=== PATIENT | male | born 1990 | race Caucasian/White ===

== ENCOUNTER 2019-09-25 16:22 | Outpatient (CLI) | payer OTHER, SELFPAY ==
[2019-09-25 16:51] LABS: Anion Gap 7 mmol/L (8-16); Blood Urea Nitrogen 13 mg/dL (9-20); Calcium 9.3 mg/dL (8.4-10.2); Carbon Dioxide 29 mmol/L (22-30); Chloride 103 mmol/L (98-107); Estimated Glomerular Filt Rate > 60; Glucose 85 mg/dL (75-110); Potassium 4.2 mmol/L (3.4-5.0); Sodium 139 mmol/L (137-145)
== END 2019-09-25 16:23 | disposition home or self-care (01) ==
PROVIDERS: PCP Internal Medicine
DX: M85.611 Other cyst of bone, right shoulder (principal)
CPT/HCPCS: 36415; 80048

== ENCOUNTER 2021-01-24 10:02 | Outpatient (CLI) | payer OTHER, SELFPAY ==
--- NOTE | ~2021-01-24 | MR_ITS ---
EXAMINATION: MR cervical spine wo con DATE: 01/24/2021 10:47 INDICATION: Cervical disc disorder with radiculopathy. TECHNIQUE: Magnetic resonance imaging (MRI) of the cervical spine was performed without intravenous c ontrast. Sequences included sagittal T2-weighted FSE, sagittal T2-weighted FS FSE, sagittal T1-weight ed FSE, axial MERGE, and axial T2-weighted FSE. COMPARISON: None FINDINGS: Bone alignment is normal. Vertebral body heights and intervertebral disc heights are normal . The spinal cord signal intensity is normal. The following disc levels are specifically discussed: C2-C3: The disc does not extend beyond the endplate margin. There is no uncovertebral joint osteoarth ritis. There is mild bilateral facet joint osteoarthritis. There is no neural foraminal stenosis. The re is no central canal stenosis. C3-C4: The disc does not extend beyond the endplate margin. There is no uncovertebral joint osteoarth ritis. There is mild bilateral facet joint osteoarthritis. There is no neural foraminal stenosis. The re is no central canal stenosis. C4-C5: The disc does not extend beyond the endplate margin. There is mild left uncovertebral joint os teoarthritis. There is no facet joint osteoarthritis. There is no neural foraminal stenosis. There is no central canal stenosis. C5-C6: The disc does not extend beyond the endplate margin. There is no uncovertebral joint osteoarth ritis. There is no facet joint osteoarthritis. There is no neural foraminal stenosis. There is no annika tral canal stenosis. C6-C7: The disc does not extend beyond the endplate margin. There is no uncovertebral joint osteoarth ritis. There is mild bilateral facet joint osteoarthritis. There is no neural foraminal stenosis. The re is no central canal stenosis. C7-T1: The disc does not extend beyond the endplate margin. There is no uncovertebral joint osteoarth ritis. There is no facet joint osteoarthritis. There is no neural foraminal stenosis. There is no annika tral canal stenosis. IMPRESSION: 1. Mild polyarticular osteoarthritis. Reviewed, dictated and finalized at location A. WALL APPLICATOR
== END 2021-01-24 10:03 | disposition home or self-care (01) ==
LOC: ANHIMG 10:06
PROVIDERS: PCP Internal Medicine; Visit Provider Orthopaedic Surgery Hand Surgery
DX: M50.10 Cervical disc disorder with radiculopathy, unspecified cervical region (principal); M47.892 Other spondylosis, cervical region
CPT/HCPCS: 72141

== ENCOUNTER 2023-08-30 09:22 | Outpatient (CLI) | payer OTHER, SELFPAY ==
--- NOTE | ~2023-08-30 | XR_ITS ---
XR cervical spine min 6V Ordering provider: Devon Coulter, [place] History: . Neck pain . Comparison: None. FINDINGS: VERTEBRAL BODIES: Normal height and alignment. No visible fracture or subluxation. The dens is intact . DISK SPACES: Well maintained. PARASPINOUS SOFT TISSUES: No prevertebral soft tissue swelling. IMPRESSION: No acute osseous abnormality cervical spine. Reviewed, dictated and finalized at location A.
== END 2023-08-30 09:23 ==
LOC: GOSHIMG 09:26
PROVIDERS: PCP Internal Medicine; Visit Provider Chiropractor
DX: M54.2 Cervicalgia (principal)
CPT/HCPCS: 72052

== ENCOUNTER 2024-10-11 11:24 | Outpatient (CLI) | payer OTHER, SELFPAY ==
--- OUTSIDE RECORDS SUMMARY | 2021-03-02 09:50 | XMS_ITS | Continuity of Care Document ---
Author Organization [facility] Address [address] [place] [address] Phone Care Team Providers Care Podiatric Surgeon Name Role Phone Wero HOSKINS MD, Eddy Unavailable María Elena vailable Allergies, Adverse Reactions, Alerts Substance Reaction Status Criticality No Known Allergies Active No Inform ation Medications Medication Instructions Dosage Effective Dates (start - stop) Status Comments clomiphene citrate 50 mg tablet - Active tramadol 50 mg tablet take 1 tablet by oral route every 6 hours as needed 50 MG - No Longer Active Procedures Procedure Date X-ray exam Cervical 3 Views Or Less Office/outpatient visit,[facility] [place] [facility] [place] Global/Postop followup visit Global/Postop followup visit Arc 2 0 Sling Office/outpatient visit,[facility], [place] [facility] [place] 2019 Advance Directives Directive Yes / No Effective Date File Name No Information Encounters Encounter Description Practice Location Reason(s) For Visit Diagnoses Date Provider Providers Copied on Encounter Office/outpa tient visit,est, mod [facility], [address], [id number], [place] tel:[phone] [facility] excruciating Neck And Back Pain (chief complaint)cer vical spine (chief complaint) Cervicalgia 2 Wero Kam er. [address], [address], [place], [place], [id number] , [place]. tel: [phone] [facility], [address], [id number], [place] [phone] [facility] shoulder (chief complaint) Superior glenoid labrum lesion of right shoulder, initOther cyst of bone, right shoulderOther instability, right shoulderEncoun ter for other orthopedic aftercare [phone] [facility] Alexa . [address] [place] [address], [place], [place], [id number] , [place]. tel: [phone] [facility], [address], [id number], [place] [phone] [facility] shoulder (chief complaint) Superior glenoid labrum lesion of right shoulder, initOther instability, right shoulderOther cyst of bone, right shoulderEncoun ter for other orthopedic aftercare 0 [facility] Alexa . [address], [id number] , [place]. tel: [phone] [facility], [address], [id number], [place] [phone] [facility] No Information 0 Verenice Contreras. [address], [id number] , [place]. tel: [phone] [facility], [address], [id number], [place] [phone] [facility] Superior glenoid labrum lesion of right shoulder, init 0 Verenice Contreras. [address] [facility], [address], [id number] , [place]. tel: [phone] [facility], [address], [id number], [place] [phone] [facility] Superior glenoid labrum lesion of right shoulder, init 0 Verenice Contreras. [address] [facility], [address], [place], [place], [id number] , [place]. tel: [phone] Office/outpa tient visit,[facility] [place] [facility] [place] [facility], [address], [place], [place], [id number], tel:[phone] [facility] right shoulder pain (chief complaint) Superior glenoid labrum lesion of right shoulder, initOther instability, right shoulderOther cyst of bone, right shoulder 0 Verenice Contreras. [address] [facility], [address], [place], [place], [id number] , [place]. tel: [phone] Family History Family Member Type Diagnosis Age At Onset Father Problem (finding) Cancer, unknown Mother Problem (finding) Cancer, unknown Mother Problem (finding) Diabetes Payers Payer name Insurance type Covered democrat ID Juanjose mota(s) César CI [id number] Social History Type Description Quantity Date Captured Comments Alcohol Use Details Unknown Caffeine Use Details Unknown Tobacco Use Status No Information Smoking Status No Information Sex Male Chief Complaint And Reason For Visit From encounter dated '03/02/2021 14:50'. excruciating Neck And Back Pain (chief complaint) cervical spine (chief complaint). Description: Daniel Carreon is a pleasant 30-year-old male who presents for an evaluation of years of symptoms; however, his symptoms have worsened over the last 4 to 6 months. He describes increasing right-sided medial periscapular pain along the superior and medial border of the right shoulder blade, as well as radiating up into the posterior aspect of the paraspinal musculature on the right side. The patient denies radiation down the right upper extremity; however, he does have pain in the periscapular and paraspinal regions on the right side. He denies any pain in the left upper extremity. The patient has tried a laundry list of treatments, including formal physical therapy with dry needling and a gun under the care of a physical therapist. He has also tried cupping, electrical stimulation, massage, and resident care manager rn without significant relief in his symptoms. 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 He notes that this aggravates his symptoms. Reason For Referral Reason For Referral No Information Plan Of Treatment Date Type Action Status Referral Ordered: X-ray exam Cervical 3 Views Or Less ordered Referral Ordered: Other ordered Referral Referred To: Ronni Ortega MD [address] [place], [place], [id number] Ordered: Referrals: Allopathic & Osteopathic Physicians : [facility]. Ronni Ortega MD. Evaluate and treat ordered Referral Ordered: Other spine, cervical ordered Future Order: Lab Order Basic [place] tabolic Panel (BMP), Ordered on: Ordered History Of Present Illness Encounter Date Complaint History Of Prese nt Illness excruciating Neck And Back Pain cervical spine Daniel Carreon is a pleasant 30-year-old male who presents for an evaluation of years of symptoms; however, his symptoms have worsened over the last 4 to 6 months. He describes increasing right-sided medial periscapular pain along the superior and medial border of the right shoulder blade, as well as radiating up into the posterior aspect of the paraspinal musculature on the right side. The patient denies radiation down the right upper extremity; however, he does have pain in the periscapular and paraspinal regions on the right side. He denies any pain in the left upper extremity. The patient has tried a laundry list of treatments, including formal physical therapy with dry needling and a gun under the care of a physical therapist. He has also tried cupping, electrical stimulation, massage, and resident care manager rn without significant relief in his symptoms. 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 He notes that this aggravates his symptoms. shoulder The patient retu rns 12 weeks from the above procedure. The patient has done well in the interim and notes no wound/skin problems, wound drainage, new neurological complaints, or abnormal swelling/calf pain. They have been compliant with the prescribed therapy and have progressed well. They are happy with their progress. shoulder The patient retu rns 6 weeks from the above procedure. The patient has done well in the interim and notes no wound/skin problems, wound drainage, new neurological complaints, or abnormal swelling/calf pain. They have been compliant with the prescribed weight bearing status per the patient's report and use of the sling. They have progressed well with prescribed physical therapy. right shoulder pain Daniel Carreon i s a 29 year old male. He presents with pain, decreased range of motion and instability on the right side. He states that the symptoms have been acute traumatic and began 1 year ago. Daniel states that the symptoms began as the result of quick movement. He thinks this occurred rock climbing. The symptoms occur constantly with intermittent worsening. Currently the patient states that the symptoms are incapacitating. The pain is described as aching, sharp and stabbing. The symptoms occur with activity. The patient is experiencing pain in the following locations: shoulder, deep in the joint and anterior shoulder on the right side. He rates his current pain as 9/10. The pain does not radiate. The symptoms are aggravated by daily activities, lifting away from the body, moving the arm suddenly, pushing, reaching overhead and sleeping in any position. Daniel states that the symptoms are relieved by no specific activity. In addition to right shoulder pain the patient is also experiencing decreased mobility, joint instability and nocturnal awakening. Pertinent negatives include tingling in the arms. The patient has had a previous x-ray and MRI. Prior NSAIDs include ibuprofen. He has been treated with a corticosteroid injection on the right side. Patient has had previous therapy. His therapy lasted 8 Months. He has now failed greater than 6 months of reasonable non-operative treatment and has daily symptoms which limit ADLs and desired activities. Functional Status Date Functional Assessmen t No Information Instructions Date Instruction Additional Infor arabella Plan of Care:Daniel okeefe is a pleasant 30-year-old male who has a relatively normal MRI of the cervical spine. He has persistent pain that has not responded to conservative care. He has done almost everything that I can think of. Secondary to this failure, I would recommend that he be evaluated by Dr. Ronni Ortega for an attempt at medial branch blocks. I am hoping that he may have facet tissue irritation. Perhaps medial branch blocks followed by an ablation procedure may be of his best benefit. The patient will follow up with me on an as-needed basis.The medical record documentation of this Provider's service encounter was entered by Angeles Vargas, acting as Razor Grinder for Giorgio Conteh MD. Related to Cervicalgia The patient will to be WBAT and will continue physical therapy per protocol with progression to advanced strengthening, final ROM work, and functional progression. Ice, elevate, and use NSAIDs/Tylenol as able/needed. They may transition to a HEP if ready. The patient will return in 6 weeks for continued follow up if needed, otherwise is released to all activities at this point. Questions answered, verbalized. Related to Encounter for other orthopedic aftercare The details of the p rocedure performed and appropriate arthroscopic photos and any intraoperative imaging were discussed in detail with the patient.The patient will to be WBAT and will continue physical therapy per protocol with progression to advanced strengthening, final ROM work, and functional progression. Ice, elevate, and use NSAIDs/Tylenol as able/needed. The patient will return in 6 weeks for continued follow up and likely final release to all activities at that point. Questions answered, verbalized. Related to Encounter for other orthopedic aftercare Given the patient's specific injury pattern, activity level, and anatomic injury pattern I would recommend that we proceed with surgical treatment of the shoulder via arthroscopic labral repair with capsulorraphy, cyst decompression, and SLAP repair. We discussed the possible need for additional procedures such as debridement and tenodesis, remplissage, etc based on intra-operative findings. We discussed the risks, benefits, and alternatives to surgery. We discussed in detail the perioperative restrictions, rehabilitation, and expected outcomes for the procedure as well as possible complications including but not limited to: , DVT/PE, heart attack, stroke, other medical complication, infection, injury to nerves, blood vessels, and soft tissues, continued pain, perceived failure of the surgery, and the possible need for further surgery in the future. The patient expressed their understanding and has elected to proceed at their earliest convenience. Medical clearance will be obtained as appropriate. Questions answered, verbalized understanding. Related to Other cyst of bone, right shoulder Assessments Type Assessment Date assessment Cervicalgia Patient Care Teams Name Effective Dates (start - stop) Status Members No Information
--- OUTSIDE RECORDS SUMMARY | 2024-10-11 12:02 | XMS_ITS | Clinical Summary ---
Author Organization [facility] Address [address] [place] [address] Care Team Providers Care Mail Handler Sorter Name Role Phone Gurinder Simpson MD Primary Care Provider Allergies No known active allergies Medications albuterol HFA (PROVENTIL HFA,VENTOLIN HFA,PROAIR HFA) 90 mcg/actuation inhaler 2 puffs every 4 (four) hours as needed 3 Active azithromycin (ZITHROMAX) 250 mg tablet 3 Active benzonatate (TESSALON) 100 mg capsule TAKE 1 CAPSULE BY MOUTH EVERY 8 HOURS NEEDED 3 Active predniSONE (DELTASONE) 20 mg tablet TAKE 2 TABLETS BY MOUTH DAILY WITH FOOD FOR 5 DAYS. 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 Gender Identity Not on file Sexual Orientation Not on file Obstetrics History Plan of Treatment Health Maintenance Due Date Last Done Comments Depression Screening 1990 Hepatitis C Screening 1990 Varicella Vaccines (1 of 2 - 13+ 2-dose series) 06/02/2003 Regular Well Visit/Exam 18-64 2008 HPV Vaccines (1 - 3-dose SCDM series) 2017 Covid-19 Vaccine ( season) 2024 10/29/2020, 10/08/2020 Influenza Vaccine (#1) 2024 11/22/2020 DTaP/Tdap/Td Vaccine (6 - Td or Tdap) 11/22/2030 11/22/2020, 08/31/1995, 07/10/1991, Additional history exists Hepatitis B Screening Completed 03/04/1998 , 10/01/1997, 09/03/1997 Pneumococcal vaccine <65 Aged Out No longer eligible based on patient's age to complete this topic Insurance [employer] [place] [employer]O Address: [address] [address] [place] [address] Care Teams Mail Handler Sorter Relationship Specialty Start Date End Date Gurinder Simpson MD PCP - General 07/27/10
[2024-10-11 13:14] LABS: Hematocrit 49.2 % (42.0-52.0); Hemoglobin 17.2 g/dL (14.0-18.0); Immature Granulocyte Percent A 1.1 % (0-0.5); Lymphocytes Absolute Auto 1.67 K/mm3 (0.9-3.2); Mean Corpuscular HGB Conc 35.0 g/dl (32-36); Mean Corpuscular Hemoglobin 31.6 pg (26-34); Mean Corpuscular Volume 90.3 fl (80-100); Nucleated Red Blood Cells Absolute Auto 0.000 K/mm3 (0.0-0.012); Nucleated Red Blood Cells Perc 0.0 % (0.0-0.2); Platelet Count Result 244 k/mm3 (150-375); Red Blood Count 5.45 M/mm3 (4.6-6.20); White Blood Count 6.3 K/mm3 (4.5-10.0)
[2024-10-11 13:47] LABS: Alanine Aminotransferase 20 U/L (6-50); Albumin Level 4.8 g/dL (3.5-5.1); Alkaline Phosphatase 89 U/L (38-126); Anion Gap 11 mmol/L (4-12); Aspartate Amino Transferase 53 U/L (17-59); Bilirubin,Total 1.0 mg/dL (0.2-1.3); Blood Urea Nitrogen 17 mg/dL (9-20); Calcium 9.6 mg/dL (8.4-10.2); Carbon Dioxide 25 mmol/L (22-30); Chloride 101 mmol/L (98-107); Cholesterol 229 mg/dL (0-200); Estimated Glomerular Filt Rate > 60; Glucose 97 mg/dL (65-110); HDL Direct 58 mg/dL; Potassium 4.1 mmol/L (3.4-5.0); Sodium 137 mmol/L (137-145); Total Protein 7.9 g/dL (6.3-8.2); Triglycerides 132 mg/dL (<150)
[2024-10-11 13:48] LABS: Syphilis IgG/IgM Antibody Non-Reactive (Nonreactive)
[2024-10-11 13:52] LABS: Hepatitis B Surface Antigen Negative (Negative)
[2024-10-11 14:04] LABS: HIV 1/2 Ab P24 Ag Result Negative (Negative)
[2024-10-11 14:23] LABS: Prostate Specific Antigen 1.4 ng/mL (< OR = 4.0)
[2024-10-12 08:08] LABS: HSV 1 IgG, Type Spec Non Reactive (Non Reactive); HSV 2 IgG, Type Spec Non Reactive (Non Reactive)
== END 2024-10-11 11:25 | disposition home or self-care (01) ==
LOC: ANHGOSHLAB 11:25
PROVIDERS: PCP Nurse Practitioner; Visit Provider Nurse Practitioner
DX: Z11.3 Encounter for screening for infections with a predominantly sexual mode of transmission (principal); Z11.59 Encounter for screening for other viral diseases; Z12.5 Encounter for screening for malignant neoplasm of prostate; Z13.220 Encounter for screening for lipoid disorders; Z20.828 Contact with and (suspected) exposure to other viral communicable diseases; Z72.89 Other problems related to lifestyle; A53.9 Syphilis, unspecified; Z80.0 Family history of malignant neoplasm of digestive organs
CPT/HCPCS: 36415; 80053; 80061; 84153; 85025; 86593; 86695; 86696; 86703; 86803; 87340; 87491; 87591; G0103; G0432